=== PATIENT | male | born 1980 | race Caucasian/White ===

== ENCOUNTER 2018-08-08 17:36 | Emergency (ER) | payer MEDICAID ==
--- NOTE | 2018-08-08 18:07 | ED ---
Neurological HPI - HPI Summary HPI Summary: Patient is a 38 y/o M presenting to ED with 2 seizure episodes and head laceration onsetting today. PMHx of seizures, he reports episodes every two months, states he is not currently on medications for seizures as they "slow him down". Patient reports that he was walking home today when he began to experience right arm numbness (this is a reported pre-cursor of his seizures). He states he attempted to find some grass to lie down upon but he experienced LOC before doing so. Patient had a second witnessed seizure while lying on the ground. 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 Last tetanus shot was two years ago. CHILD is endorsed as well. EMS reports patient was postictal for ten minutes, in room he is A&Ox3. In the room, he states he does not want any workup whatsoever, including no imaging and venice, as he is concerned about cost. Patient has a neurologist in [place]. On triage, pain is rated 8/10, nothing is noted to aggravate/alleviate Sx. Home medications and allergies are reviewed. - History of Current Complaint Chief Complaint: EDSeizure Stated Complaint: FALL Time Seen by Provider: 08/08/18 17:51 Hx Obtained From: Patient Onset/Duration: Started hours ago, Still Present - CHILD, Resolved - seizures, postictal Timing: Intermittent Episodes Lasting: Current Severity: Severe - 8/10 Number of Seizures: 2 Pain Intensity: 8 Pain Scale Used: 0-10 Numeric - 8/10 Character: Numbness/Tingling - right, Other: - CHILD, seizure, head laceration Syncope Context: Witnessed, Loss of Consciousness: Yes, At Rest - lying down when second occurred, Exertion - walking during first seizure Frequency: Episodes x___ - 2 today, reports every two months he experiences seizure Aggravating: Nothing Alleviating: Nothing Associated Signs and Symptoms: Positive: Headache, Seizure, Numbness - right arm - Allergy/Home Medications Allergies/Adverse Reactions: Allergies Allergy/AdvReac Type Severity Reaction Status Date / Time No Known Allergies Allergy Verified 08/08/18 17:43 Home Medications: Home Medications NK [No Home Medications Reported] 08/08/18 [History Confirmed 08/08/18] PMH/Surg Hx/FS Hx/Imm Hx Sensory History: Denies: Hx Legally Blind, Hx Deafness Opthamlomology History: Denies: Hx Legally Blind EENT History: Denies: Hx Deafness Neurological History: Reports: Hx Seizures Infectious Disease History: No Infectious Disease History: Denies: Traveled Outside the [place] in Last 30 Days - Family History Known Family History: Positive: Other - no FMHx of seizures - Social History Alcohol Use: None Substance Use Type: Reports: None Smoking Status (MU): Never Smoked Tobacco Review of Systems Negative: Fever - on vitals, temp is 98.6 F Neurological: Other - POSITIVE - HEAD LACERATION Positive: Headache, Numbness - right arm , Syncope - LOC, seizures All Other Systems Reviewed And Are Negative: Yes Physical Exam - Summary Physical Exam Summary: Appearance: The patient is well-nourished in no acute distress and in no acute pain. Skin: The skin is warm and dry and skin color reflects adequate perfusion. 1.5 cm to occipital aspect of the crown. HEENT: The head is normocephalic and atraumatic. The pupils are equal and reactive. The conjunctivae are clear and without drainage. Nares are patent and without drainage. Mouth reveals moist mucous membranes and the throat is without erythema and exudate. The external ears are intact. The ear canals are patent and without drainage. The tympanic membranes are intact. Neck: The neck is supple with full range of motion and non-tender. There are no carotid bruits. There is no neck vein distension. Respiratory: Chest is non-tender. Lungs are clear to auscultation and breath sounds are symmetrical and equal. and Cardiovascular: Heart is regular rate and rhythm. There is no murmur or rub auscultated. There is no peripheral edema and pulses are symmetrical and equal. Abdomen: The abdomen is soft and non-tender. There are normal bowel sounds heard in all four quadrants and there is no organomegaly palpated. Musculoskeletal: There is no back tenderness noted. Extremities are non-tender with full range of motion. There is good capillary refill. There is no peripheral edema or calf tenderness elicited. Neurological: Patient is alert and oriented to person, place and time. The patient has symmetrical motor strength in all four extremities. Cranial nerves are grossly intact. Deep tendon reflexes are symmetrical and equal in all four extremities. Psychiatric: The patient has an appropriate affect and does not exhibit any anxiety or depression. Triage Information Reviewed: Yes Vital Signs On Initial Exam: Initial Vitals Temp Pulse Resp BP Pulse Ox 98.6 F 96 17 132/91 96 08/08/18 17:38 08/08/18 17:38 08/08/18 17:38 08/08/18 17:38 08/08/18 17:38 Vital Signs Reviewed: Yes Diagnostics - Vital Signs Vital Signs Temp Pulse Resp BP Pulse Ox 08/08/18 17:44 101 96 08/08/18 17:42 98 97 08/08/18 17:38 98.6 F 96 17 132/91 96 - Laboratory Lab Statement: Any lab studies that have been ordered have been reviewed, and results considered in the medical decision making process. Course/Dx - Course Course Of Treatment: By the time he got here, Mr. Horton was no longer postictal. He reports that he has not been taking any anticonvulsants because they slowest thinking down and he is currently trying to get a job and needs to be thinking clearly. He stated that once he gets a job and insurance he is likely going to restart anticonvulsants. He has had a seizure once every month or 2. He has not driven a car in several years. He normally has a warning and today is no exception. However he did not get down in time and did fall sustaining a laceration to the back of his head. I recommended staple closure as well as workup and starting anticonvulsants however he is adamant that he cannot afford that at this time and believes that he will be fine. He is perfectly competent to make that decision and understands the consequences of it. - Diagnoses Provider Diagnoses: Seizure Discharge - Sign-Out/Discharge Documenting (check all that apply): Patient Departure - discharge - Discharge Plan Condition: Stable Disposition: HOME Patient Education Materials: Recurrent Seizures in Adults (ED) Referrals: Az Amin MD [Medical Doctor] - 3 Days Additional Instructions: RETURN TO ED FOR ANY NEW OR WORSENING SYMPTOMS. FOLLOW UP WITH NEUROLOGIST IN 2- 3 DAYS. - Billing Disposition and Condition Condition: STABLE Disposition: Home - Attestation Statements Document Initiated by Scribe: Yes Documenting Scribe: DHRUV MARRERO Provider For Whom Scribe is Documenting (Include Credential): JONY KEITA MD Scribe Attestation: DHRUV Schneider , scribed for JONY KEITA MD on 08/08/18 at 1906. Scribe Documentation Reviewed: Yes Provider Attestation: The documentation as recorded by the scribe, DHRUV MARRERO accurately reflects the service I personally performed and the decisions made by me, JONY KEITA MD Status of [place] Document: Viewed
[2018-08-08 19:14] VITALS: BP 126/82
== END 2018-08-08 19:12 | disposition home or self-care (01) ==
LOC: ED 17:36
DX: R56.9 Unspecified convulsions (principal); S01.01XA Laceration without foreign body of scalp, initial encounter; W19.XXXA Unspecified fall, initial encounter; Y92.9 Unspecified place or not applicable
CPT/HCPCS: 99282